=== PATIENT | female | born 1965 | race Asian ===

== ENCOUNTER 2019-07-09 08:42 | Day surgery (SDC) | payer OTHER ==
[2019-07-09 09:25] VITALS: BMI 30.9
[2019-07-09 09:49] VITALS: TEMP 98.2
[2019-07-09 13:53] VITALS: BP 118/77; PULSE 73
--- NOTE | 2019-07-11 18:02 | PATH ---
Surgical Pathology Report Patient Name: NORMA DE LEON [facility]. Rec. #: [id number] /Age/Gender: 1965 (Age: 54) / F Account: [id number] Location: U-ENDOSCOPY Taken: 07/09/2019 Received: 07/09/2019 Reported: 07/11/2019 Physicians: Garry Borden D.O. Specimen(s) Received A: DUODUEM BULP POLYP B: BX ANTRAL EROSION C: ANGULARIS AND BODY Clinical History Lap band surgery, FH gastric cancer. Postoperative diagnosis: Gastritis, duodenal polyp Final Diagnosis A. DUODENUM BULB POLYP, BIOPSY: DUODENUM MUCOSA WITH NONSPECIFIC CHRONIC DUODENITIS AND FOCAL DILATED GLAND. B. ANTRAL EROSION, BIOPSY: GASTRIC MUCOSA WITH CHRONIC GASTRITIS. IMMUNOSTAIN FOR H. PYLORI IS NEGATIVE. NEGATIVE FOR INTESTINAL METAPLASIA. C. ANGULARIS AND BODY, BIOPSY: GASTRIC MUCOSA WITH CHRONIC GASTRITIS. IMMUNOSTAIN FOR H. PYLORI IS NEGATIVE. NEGATIVE FOR INTESTINAL METAPLASIA. Electronically Signed Chon Kaiser M.D. Gross Description A. Received in formalin, labeled "duodenal bulb polyp" is a schmidt, irregular portion of soft tissue measuring 0.2 cm. in greatest dimension. The specimen is submitted in toto in one cassette. B. Received in formalin, labeled "biopsy, antral erosions" is a schmidt, irregular portion of soft tissue measuring 0.3 cm. in greatest dimension. The specimen is submitted in toto in one cassette. C. Received in formalin, labeled "angularis and body" are 3 schmidt, irregular portions of soft tissue ranging from 0.2-0.4 cm. in greatest dimension. The specimens are submitted in toto in one cassette. AE/07/10/2019 ebram/07/10/2019
== END 2019-07-09 10:35 | disposition home or self-care (01) ==
LOC: JASU-ENDO 08:42
PROVIDERS: ATTEND Internal Medicine Gastroenterology
PROC: 0DB68ZX Excision of Stomach, Via Natural or Artificial Opening Endoscopic, Diagnostic (ICD-10-PCS; 2019-07-09)
PROC: 0DB98ZX Excision of Duodenum, Via Natural or Artificial Opening Endoscopic, Diagnostic (ICD-10-PCS; principal; 2019-07-09 09:28)
DX: Z12.0 Encounter for screening for malignant neoplasm of stomach (principal); Z98.84 Bariatric surgery status; Z80.0 Family history of malignant neoplasm of digestive organs; K21.9 Gastro-esophageal reflux disease without esophagitis; K44.9 Diaphragmatic hernia without obstruction or gangrene; K31.7 Polyp of stomach and duodenum; K25.9 Gastric ulcer, unspecified as acute or chronic, without hemorrhage or perforation; I10 Essential (primary) hypertension
CPT/HCPCS: 88305-TC

== ENCOUNTER 2019-07-16 08:09 | Day surgery (SDC) | payer OTHER ==
[2019-07-16 08:52] VITALS: BMI 31.1
[2019-07-16 10:32] VITALS: TEMP 98.6
[2019-07-16 11:04] VITALS: BP 99/64; PULSE 60
== END 2019-07-16 11:15 | disposition home or self-care (01) ==
LOC: JASU-ENDO 08:09
PROVIDERS: ATTEND Internal Medicine Gastroenterology
PROC: 0DJD8ZZ Inspection of Lower Intestinal Tract, Via Natural or Artificial Opening Endoscopic (ICD-10-PCS; principal; 2019-07-16 09:15)
DX: Z12.11 Encounter for screening for malignant neoplasm of colon (principal)